=== PATIENT | male | born 1995 | race African-American/Black ===

== ENCOUNTER 2021-03-28 19:46 | Emergency (ER) | payer SELFPAY ==
[2021-03-29 15:01] LABS: SARS-CoV-2 PCR by NAA DETECTED (NotDetected)
== END 2021-03-28 23:57 | disposition home or self-care (01) ==
LOC: ERS 19:46
DX: U07.1 COVID-19 (principal)
CPT/HCPCS: 99284; U0003; U0005

== ENCOUNTER 2022-06-16 18:02 | Emergency (ER) | payer OTHER, SELFPAY | END 2022-06-16 22:40 | disposition home or self-care (01) | LOC: ERS 18:02 | DX: S20.219A Contusion of unspecified front wall of thorax, initial encounter (principal); V43.62XA Car passenger injured in collision with other type car in traffic accident, initial encounter ==